=== PATIENT | female | born 1960 | race Caucasian/White ===

== ENCOUNTER 2018-11-01 08:32 | Emergency (ER) | payer OTHER ==
[~2018-11-01] VITALS: Ht 160 cm; Wt 60.3 kg
[2018-11-01 08:55] VITALS: BP 113/67
[2018-11-01] MEDS ORDERED: PRED20TA PO (08:56)
--- NOTE | 2018-11-01 08:56 | PHYS DOC ---
Past History Additional Past Medical Histor: Hypoglycemia Past Surgical History: Cholecystectomy Smoking: Non-smoker Alcohol Use: None Drug Use: None Adult General Chief Complaint Chief Complaint: Neck Pain HPI HPI 58-year-old female presents with report of continued right neck pain �3-4 days. Patient reports upon waking this morning it has become worse. Patient was seen ache chiropractor yesterday and had adjustments done. Patient reports she thinks she might have overdone her physical therapy for her right shoulder prior to symptoms starting. Patient also reports she thinks she might have slept wrong last night. Reports has been using CBD oils, essential oils, ibuprofen, and icing without significant improvement. Denies fever or chills. Denies known trauma. Patient reports some numbness to her face and neck. Review of Systems Review of Systems Constitutional: Denies fever or chills Eyes: Denies redness or eye pain HENT: Denies nasal congestion or sore throat Respiratory: Denies cough or shortness of breath Cardiovascular: Denies chest pain or palpitations GI: Denies abdominal pain, nausea, or vomiting : Denies dysuria or hematuria Musculoskeletal: Denies back pain; reports right-sided neck pain in the shoulder Integument: Denies rash or skin lesions Neurologic: Denies headache, focal weakness; reports some numbness to face and neck Complete systems were reviewed and found to be within normal limits, except as documented in this note. Physical Exam Physical Exam Constitutional: Well developed, well nourished, no acute distress, non-toxic appearance HENT: Normocephalic, atraumatic, oropharynx moist Eyes: PERRL, EOMI, conjunctiva normal, no discharge Neck: Limited range of motion due to discomfort, right paraspinal tenderness, no midline bony tenderness, supple, no meningeal signs, right trapezius tight and tender to palpation Cardiovascular: Heart rate normal, regular rhythm Lungs & Thorax: Bilateral breath sounds clear to auscultation, no wheezing Abdomen: Soft, no tenderness Skin: Warm, dry, no erythema, no rash Back: No midline tenderness, no CVA tenderness Extremities: No tenderness, ROM intact, no edema, bilateral upper extremities neurovascularly intact Neurologic: Alert and oriented X 3, normal motor function, normal sensory function, no focal deficits noted Psychologic: Affect normal, judgement normal EKG EKG [] Radiology/Procedures Radiology/Procedures [] Course & Med Decision Making Course & Med Decision Making Patient presents with history of present illness and physical exam consistent for right neck strain and discomfort. Patient with paraspinal tenderness. No meningeal signs noted. Patient is afebrile. Patient did report some numbness to her face and neck which was not appreciated on physical exam. Cannot fully exclude herniated disc and/or radiculopathy. No history of trauma. Symptomatic treatment provided. Patient stable for discharge with outpatient follow-up with PCP/pain management. Pain management referral provided. Discussed findings and plan with patient and family, who acknowledge understanding and agreement. Dragon Disclaimer Dragon Disclaimer This electronic medical record was generated, in whole or in part, using a voice recognition dictation system. Departure Departure: Impression: Primary Impression: Neck pain Disposition: 01 HOME, SELF-CARE Condition: STABLE Referrals: MARIA DEL ROSARIO MATHIS DO (PCP) Patient Instructions: Cervical Strain and Sprain with Rehab[facility] Additional Instructions: Call Dr. Kamar Coronado (Pain management) at for further evaluation and treatment. Scripts Orphenadrine Citrate (ORPHENADRINE CITRATE) 100 Mg Tablet.er 1 TAB PO BID PRN for MUSCLE PAIN, #14 TAB 0 Refills Prov: EDWIN MALCOLM DO 11/01/18 Prednisone (PREDNISONE) 20 Mg Tablet 2 TAB PO DAILY for Neck pain/Strain, #10 TAB Prov: EDWIN MALCOLM DO 11/01/18 EDWIN MALCOLM DO Nov 01, 2018 08:56
[2018-11-01] MEDS ORDERED: ORPH-16 PO (08:59)
[2018-11-01] MEDS ORDERED: ORPHENADRINE CITRATE 60 MG/2 ML VIAL. IM ONE (09:00)
== END 2018-11-01 09:25 | disposition home or self-care (01) ==
LOC: ER 08:32
DX: M54.2 Cervicalgia (principal); R20.0 Anesthesia of skin
CPT/HCPCS: 96372; 99283; J2360